=== PATIENT | male | born 1960 | race Caucasian/White ===

== ENCOUNTER 2020-02-23 18:30 | Inpatient (IN) ==
[2020-02-23] MEDS ORDERED: *HR* Heparin 5,000 UNIT/ML VIAL ONE (18:38)
[2020-02-23] MEDS ORDERED: Aspirin 81 MG TAB.CHEW ONE (18:38)
[2020-02-23] MEDS ORDERED: 0.9 % Sodium Chloride 1,000 ML ONE ×3 (18:39→19:13)
[2020-02-23] MEDS ORDERED: ISOVUE-370 200 ML INFUS..BTL ONE ×2 (19:05→20:09)
[2020-02-23] MEDS ORDERED: *HR* Heparin 10,000 UNIT/10 ML VIAL ONE (19:05)
[2020-02-23] MEDS ORDERED: Heparin 1,000 UNITS/500 mL 500 ML ONE (19:05)
[2020-02-23] MEDS ORDERED: Nitroglycerin 1,000 MCG/10 ML VIAL IV ONE (19:05)
[2020-02-23] MEDS: *HR* Ticagrelor 90 MG TABLET ONE ×2 (19:08→19:09)
[2020-02-23 19:11] LABS: INR 1.1; Prothrombin Time 12.7 Seconds (9.4-12.1)
[2020-02-23] MEDS ORDERED: *HR* Midazolam HCl 2 MG/2 ML VIAL ONE (19:12)
[2020-02-23 19:13] LABS: Activated Partial Thrombo Time 34.3 Seconds (26.0-36.0)
[2020-02-23] MEDS ORDERED: *HR* FentaNYL (PF) 100 MCG/2 ML VIAL ONE (19:13)
[2020-02-23 19:27] LABS: Basophils # 0.1 K/mcL (0.0-0.2); Basophils % 0.4 %; Eosinophils # 0.1 K/mcL (0.0-0.6); Eosinophils % 0.9 %; Hematocrit 46.5 % (37.5-50.1); Hemoglobin 15.2 g/dL (12.9-16.9); Immature Granulocytes % 0.4 % (0-4); Lymphocytes # 1.9 K/mcL (0.6-4.6); Lymphocytes % 16.4 %; Mean Corpuscular HGB Conc 32.7 g/dL (31.6-35.5); Mean Corpuscular Volume 91.9 fL (83.0-100.0); Mean Platelet Volume 9.9 fL (9.4-12.4); Monocytes # 1.7 K/mcL (0.0-1.3); Monocytes % 14.8 %; Neutrophils # 7.8 K/mcL (1.6-8.9); Platelet Count 187 K/mcL (140-400); Red Blood Count 5.06 M/mcL (4.19-5.50); Segmented Neutrophils % 67.1 %; White Blood Count 11.7 K/mcL (4.3-11.1)
[2020-02-23] MEDS ORDERED: Tirofiban 12.5 MG/250ML 12.5 MG/250 ML BAG ONE (19:39)
[2020-02-23 20:03] LABS: BUN/Creatinine Ratio 17 (6-26); Blood Urea Nitrogen 18 mg/dL (6-20); Carbon Dioxide 27 mEq/L (23-29); Chloride 100 mEq/L (98-107); Creatine Kinase 307 Units/L (30-223); Glucose 110 mg/dL (70-105); Magnesium 2.2 mg/dL (1.6-2.6); Osmolality,Calculated 285 (280-300); Potassium 3.9 mEq/L (3.5-5.1); Sodium 136 mEq/L (136-145); eGFR For African Americans > 60 (> 60); eGFR For Non-African Americans > 60 (> 60)
[2020-02-23] MEDS ORDERED: *HR* Atropine Sulfate 1 MG/10 ML SYRINGE ONE (20:14)
[2020-02-23] MEDS ORDERED: Perflutren Lipid Microsphere 1.3 ML in 0.9 % Sodium Chloride 8.7 ML IVP PRN (20:44)
[2020-02-23] MEDS ORDERED: Tirofiban 12.5 MG/250ML 12.5 MG/250 ML BAG IVC SCH (20:45)
[2020-02-24 06:42] LABS: Basophils % 0.2 %; Eosinophils % 0.3 %; Hematocrit 41.1 % (37.5-50.1); Hemoglobin 13.9 g/dL (12.9-16.9); Immature Granulocytes % 0.5 % (0-4); Lymphocytes # 0.9 K/mcL (0.6-4.6); Mean Corpuscular HGB Conc 33.8 g/dL (31.6-35.5); Mean Corpuscular Hemoglobin 31.2 pg (28.0-33.3); Mean Corpuscular Volume 92.4 fL (83.0-100.0); Mean Platelet Volume 9.6 fL (9.4-12.4); Monocytes # 1.1 K/mcL (0.0-1.3); Monocytes % 12.4 %; Neutrophils # 6.6 K/mcL (1.6-8.9); Platelet Count 170 K/mcL (140-400); Red Blood Count 4.45 M/mcL (4.19-5.50); Red Cell Distribution Width 12.9 % (11.5-14.5); Segmented Neutrophils % 76.6 %; White Blood Count 8.6 K/mcL (4.3-11.1)
[2020-02-24 06:43] LABS: BUN/Creatinine Ratio 16 (6-26); Blood Urea Nitrogen 14 mg/dL (6-20); Calcium 9.1 mg/dL (8.6-10.3); Carbon Dioxide 22 mEq/L (23-29); Chloride 106 mEq/L (98-107); Glucose 111 mg/dL (70-105); Osmolality,Calculated 283 (280-300); Sodium 136 mEq/L (136-145); eGFR For African Americans > 60 (> 60); eGFR For Non-African Americans > 60 (> 60)
[2020-02-24] MEDS ORDERED: Metoprolol XL (24 HR) Succ 25 MG TAB.ER.24H PO SCH (09:00)
[2020-02-24] MEDS ORDERED: Aspirin Enteric Coated 81 MG Tablet PO SCH (09:00)
[2020-02-24] MEDS: *HR* Ticagrelor 90 MG TABLET PO SCH ×2 (09:12→20:36)
[2020-02-24] MEDS ORDERED: Nicotine 21 MG PATCH.TD24 TD SCH (10:15)
[2020-02-24 13:46] LABS: Alanine Aminotransferase 17 Units/L (7-52); Aspartate Amino Transferase 27 Units/L (13-39)
[2020-02-25] MEDS ORDERED: 0.9 % Sodium Chloride 500 ML IV ONE (06:40)
[2020-02-25] MEDS: Aspirin Enteric Coated 81 MG Tablet PO SCH (09:17)
[2020-02-25] MEDS: Metoprolol XL (24 HR) Succ 25 MG TAB.ER.24H PO SCH (09:17)
[2020-02-25] MEDS: *HR* Ticagrelor 90 MG TABLET PO SCH ×2 (09:17→21:50)
[2020-02-25] MEDS: Nicotine 21 MG PATCH.TD24 TD SCH (09:17)
[2020-02-25 10:10] LABS: White Blood Count 7.4 K/mcL (4.3-11.1)
[2020-02-25 10:11] LABS: Basophils % 0.4 %; Eosinophils # 0.1 K/mcL (0.0-0.6); Eosinophils % 0.8 %; Hematocrit 39.8 % (37.5-50.1); Hemoglobin 13.4 g/dL (12.9-16.9); Immature Granulocytes % 0.4 % (0-4); Lymphocytes # 0.8 K/mcL (0.6-4.6); Lymphocytes % 11.3 %; Mean Corpuscular HGB Conc 33.7 g/dL (31.6-35.5); Mean Corpuscular Hemoglobin 30.8 pg (28.0-33.3); Mean Corpuscular Volume 91.5 fL (83.0-100.0); Mean Platelet Volume 9.2 fL (9.4-12.4); Neutrophils # 5.5 K/mcL (1.6-8.9); Platelet Count 170 K/mcL (140-400); Red Blood Count 4.35 M/mcL (4.19-5.50); Red Cell Distribution Width 12.7 % (11.5-14.5); Segmented Neutrophils % 74.1 %
[2020-02-25 10:30] LABS: BUN/Creatinine Ratio 18 (6-26); Blood Urea Nitrogen 17 mg/dL (6-20); Calcium 9.1 mg/dL (8.6-10.3); Carbon Dioxide 23 mEq/L (23-29); Chloride 106 mEq/L (98-107); Glucose 105 mg/dL (70-105); Osmolality,Calculated 284 (280-300); Potassium 4.1 mEq/L (3.5-5.1); Sodium 136 mEq/L (136-145); eGFR For African Americans > 60 (> 60); eGFR For Non-African Americans > 60 (> 60)
[2020-02-25] MEDS ORDERED: Latanoprost 2.5 ML BOTTLE BOTH EYES SCH (21:00)
[2020-02-26] MEDS ORDERED: 0.9 % Sodium Chloride 500 ML IVC ONE (06:34)
[2020-02-26] MEDS: *HR* Ticagrelor 90 MG TABLET PO SCH (07:45)
[2020-02-26] MEDS: Nicotine 21 MG PATCH.TD24 TD SCH (07:45)
[2020-02-26] MEDS: Aspirin Enteric Coated 81 MG Tablet PO SCH (07:45)
[2020-02-26] MEDS: Metoprolol XL (24 HR) Succ 25 MG TAB.ER.24H PO SCH (07:46)
[2020-02-26 10:56] VITALS: BP 103/68
== END 2020-02-26 12:40 | disposition home or self-care (01) | DRG 247 ==
LOC: EMEROOARM 18:30 → ICNU 18:30 → 2ANU 02-25 12:07
PROVIDERS: ADMIT Internal Medicine Cardiovascular Disease; ATTEND Internal Medicine Cardiovascular Disease